=== PATIENT | male | born 1965 | race Caucasian/White ===

== ENCOUNTER 2018-07-31 11:03 | Day surgery (SDC) | payer BC ==
[2018-07-31] MEDS ORDERED: LIDOCAINE 2% MDV (20MG/ML) 20ML VIAL IV ONE (11:04)
[2018-07-31] MEDS ORDERED: MIDAZOLAM HCL 2MG/2ML VIAL IV ONE (11:04)
[2018-07-31] MEDS ORDERED: PROPOFOL 10 MG/ML VIAL IV ONE (11:04)
--- NOTE | 2018-08-01 11:30 | Operative Note ---
DATE OF SURGERY: 07/31/2018 OPERATION: COLONOSCOPY to the cecum with cold snare polypectomy x3. INDICATION: High-risk colorectal cancer screening. The patient's mother had colon cancer. He presents today for his first examination. ANESTHESIA: Intravenous sedation was administered by the department of anesthesiology and included Diprivan titrated to effect. PROCEDURE: Following informed consent from this alert individual including a discussion of the risks and benefits of the procedure and an opportunity for the patient to ask questions, the patient was in the left lateral decubitus position. A digital rectal examination was performed. No abnormalities were noted. Following this, the Olympus [id number] video colonoscope was inserted into the rectum without resistance. The rectal mucosa had a normal appearance with normal folds and distensibility. The colonoscope was advanced up through the colon to the level of the cecum without much difficulty. Throughout the bowel the mucosa appeared normal, the folds were normal, and the bowel was fairly well distensible. The preparation was fair to good with washing and suctioning. The cecum was defined by noting the appendiceal orifice and ileocecal valve. From the base of the cecum, the colonoscope was then withdrawn. There were 3 polyps noted upon withdrawal each measuring approximately 4 mm in size. They were removed from the transverse colon, descending colon, and sigmoid colon. No other mucosal changes were appreciated endoscopically. Retroflexion in the rectum was endoscopically normal. The instrument was straightened and removed. The patient tolerated the procedure well and was returned to the recovery area in stable condition. IMPRESSION: Three 4 mm polyps removed from the transverse colon, descending colon, and sigmoid colon with cold snare polypectomy. RECOMMENDATIONS: Further recommendations will be forthcoming pending results of pathology obtained today. The patient also has a family history of colon cancer in his mother, so at most he will wait 5 years for a recheck, again, pending pathology. As always, thank you for allowing me to participate in the care of your patient. CC: MD DENISHA Sam
== END 2018-07-31 13:40 | disposition home or self-care (01) ==
LOC: HOP 11:03
PROVIDERS: ATTEND Internal Medicine Gastroenterology
DX: Z12.11 Encounter for screening for malignant neoplasm of colon (principal); Z80.0 Family history of malignant neoplasm of digestive organs; D12.4 Benign neoplasm of descending colon; K63.5 Polyp of colon